=== PATIENT | female | born 1990 | race Caucasian/White ===

== ENCOUNTER 2023-05-14 19:50 | Emergency (ER) | payer BC, SELFPAY ==
[2023-05-14 19:53] VITALS: BP 138/88; PULSE 70; RESP 16; TEMP 36.8; O2SAT 98; BMI 23.9
[2023-05-14 20:00] VITALS: O2SAT 98
--- NOTE | 2023-05-14 20:02 | XR_ITS ---
[facility] [id number] Patient Name: GALLO ABBOTT MRN: [id number] date: 1990 Sex: F Assigned Patient Location: ED.MAIN Current Patient Location: ER Accession/Order Number: [id number] Exam Date: 05/14/2023 20:15 Report Date: 05/14/2023 21:00 At the request of: ANIL HAMM Procedure: XR chest 1V EXAMINATION: XR chest 1V, , 05/14/2023 8:15 PM EST INDICATION: cough for a month HISTORY: Ordering Provider Reason for Exam: cough for a month Technologist Note: Additional: COMPARISON: None. TECHNIQUE: Chest x-ray: One view. FINDINGS: No pneumothorax, pleural effusion or focal airspace consolidation. Heart is normal in size. Bony thorax is unremarkable. XR/XR chest 1V IMPRESSION: No acute cardiopulmonary process. Electronically authenticated by: ALISIA BELTRAN Date: 05/14/2023 21:00
--- NOTE | 2023-05-14 20:03 | ED_ITS ---
HPI - URI/Sore Throat General Chief Complaint: Upper Respiratory Infection Stated Complaint: Cough Time Seen by Provider: 05/14/23 19:53 Source: patient History of Present Illness HPI Narrative: 32-year-old female presents for cough. She's had it essentially for a month. At one point she went to an urgent care center and they put her on an antibiotic, possibly Augmentin, and prednisone. She seemed to be getting better but then the symptoms came back. Her cough is nonproductive. No known fever and no hemoptysis. no vomiting or diarrhea. Related Data Previous Rx's Medication Instructions Recorded benzonatate 100 mg capsule 100 mg PO TID PRN cough #20 caps 05/14/23 doxycycline hyclate 100 mg capsule 100 mg PO BID 10 days #20 caps 05/14/23 prednisone 10 mg tablet See Rx Instructions .Route 05/14/23 .COMPLEX #30 tabs Allergies Allergy/AdvReac Type Severity Reaction Status Date / Time No Known Drug Allergies Allergy Verified 05/14/23 19:57 Review of Systems ROS Narrative A ten point review of systems is negative except as noted above. PFSH PFSH Social History Smoking status: Never smoker Exam Narrative Exam Narrative: Nurses note and vital signs reviewed and patient is not hypoxic. General: The patient appears well and in no apparent distress. Patient is resting comfortably on cart. Skin: Warm, dry, no pallor noted. There is no rash noted. Head: Normocephalic, atraumatic Eye: Normal conjunctiva, no drainage Ears, Nose, Mouth, and Throat: oral mucosa is moist. Nares patent. Cardiovascular: Regular Rate and Rhythm Respiratory: Patient is in no distress, no accessory muscle use, lungs are rebekah ar to auscultation, no wheezing, rales or rhonchi Back: non-tender GI: soft and nontender Musculoskeletal: The patient has no evidence of calf tenderness, no pitting edema, symmetrical pulses noted bilaterally Neurological: A&O, normal speech Psychiatric: Cooperative Constitutional Vital Signs, click to edit/add: Last Vital Signs Temp 98.3 F 05/14/23 19:53 Pulse 70 05/14/23 19:53 Resp 16 05/14/23 19:53 BP 138/88 05/14/23 19:53 Pulse Ox 98 05/14/23 20:00 O2 Del Method Room Air 05/14/23 20:00 Course Vital Signs Vital signs: Vital Signs Temperature 98.3 F 05/14/23 19:53 Pulse Rate 70 05/14/23 19:53 Respiratory Rate 16 05/14/23 19:53 Blood Pressure 138/88 05/14/23 19:53 Pulse Oximetry 98 05/14/23 19:53 Oxygen Delivery Method Room Air 05/14/23 19:53 Temperature 98.3 F 05/14/23 19:53 Pulse Rate 70 05/14/23 19:53 Respiratory Rate 16 05/14/23 19:53 Blood Pressure 138/88 05/14/23 19:53 Pulse Oximetry 98 05/14/23 20:00 Oxygen Delivery Method Room Air 05/14/23 20:00 MDM - URI/Sore Throat MDM Narrative Medical decision making narrative: Chest x-ray and Covid test are negative. The possibility that this is an infectious was discussed with the patient. Family got a new dog about two months ago, a great domenic. She'll follow-up with her doctor there is no improvement. Differential Diagnosis Differential diagnosis: Likely upper respiratory infection and other (ALLERGIES) Lab Data Attestation: I reviewed the patient's lab results. Labs: Lab Results 05/14/23 Range/Units 20:20 SARS-CoV-2 (PCR) Negative (NEGATIVE) Imaging Data Chest x-ray: Radiologist's impression: Procedure: XR chest 1V EXAMINATION: XR chest 1V, , 05/14/2023 8:15 PM EST INDICATION: cough for a month HISTORY: Ordering Provider Reason for Exam: cough for a month Technologist Note: Additional: COMPARISON: None. TECHNIQUE: Chest x-ray: One view. FINDINGS: No pneumothorax, pleural effusion or focal airspace consolidation. Heart is normal in size. Bony thorax is unremarkable. IMPRESSION: No acute cardiopulmonary process. Electronically authenticated by: ALISIA BELTRAN Date: 05/14/2023 21:00 Discharge Plan Discharge Chief Complaint: Upper Respiratory Infection Clinical Impression: Cough Patient Disposition: Home, Self-Care Time of Disposition Decision: 21:12 Condition: Good Mode of Transportation: Private Vehicle Prescriptions / Home Meds: New prednisone 10 mg tablet See Rx Instructions .ROUTE .COMPLEX Qty: 30 0RF Rx Instructions: 4 by mouth daily for three days then 3 by mouth daily for three days then 2 by mouth daily for three days then 1 by mouth daily for three days doxycycline hyclate 100 mg capsule 100 mg PO BID 10 Days Qty: 20 0RF benzonatate 100 mg capsule 100 mg PO TID PRN (Reason: cough) Qty: 20 0RF Instructions: Upper Respiratory Infection (ED) Stand Alone Forms: Portal Instructions Referrals: Physician,Non-Staff, MD [Primary Care Provider] - 1 week
[2023-05-14 20:52] LABS: SARS-CoV-2 Ag NEGATIVE (NEGATIVE)
[2023-05-14 21:19] VITALS: PULSE 72; RESP 14; O2SAT 97
[2023-05-16 15:16] LABS: SARS-CoV-2 NAA INCONCLUSIVE (NOT DETECTE)
== END 2023-05-14 21:26 | disposition home or self-care (01) ==
PROVIDERS: Emergency Provider Emergency Medicine
DX: R05.9 Cough, unspecified (principal); Z20.822 Contact with and (suspected) exposure to COVID-19
CPT/HCPCS: 71045; 87635; 87811; 99283